=== PATIENT | male | born 1980 | race Caucasian/White ===

== ENCOUNTER 2018-02-18 23:38 | Emergency (ER) | payer SELFPAY ==
[~2018-02-18] VITALS: Ht 175.3 cm; Wt 75.0 kg
[2018-02-18 23:41] VITALS: BP 103/62
== END 2018-02-19 04:30 | disposition home or self-care (01) ==
LOC: ER 23:38
DX: F41.9 Anxiety disorder, unspecified (principal); F17.200 Nicotine dependence, unspecified, uncomplicated
CPT/HCPCS: 99283; 99284